=== PATIENT | female | born 2000 | race Caucasian/White ===

== ENCOUNTER 2024-09-20 16:55 | Emergency (ER) | payer BC, MEDICAID, SELFPAY ==
[2024-09-20 17:04] VITALS: BP 159/79; PULSE 91; RESP 16; TEMP 36.6; O2SAT 99; BMI 21.6
--- NOTE | 2024-09-20 17:55 | W.ED.PREGNAN ---
HPI - General: Chief complaint: OB/Uterine Contractions Stated complaint: 4 weeks , bleeding Time Seen by Provider: 09/20/24 17:53 History of Present Illness: 24-year-old female estimates gestational age of approximately 4 weeks. 4 days ago the patient began having some spotting. Bleeding has gotten heavier. She denies any cramping. Associated symptoms: Deny abdominal pain or dysuria Related Data Allergies Allergy/AdvReac Type Severity Reaction Status Date / Time No Known Allergies Allergy Verified 09/20/24 17:11 Review of Systems Const: Denies: fever(s) or chills Card: Denies: chest pain Resp: Denies: dyspnea GI: Denies: abdominal pain : Denies: dysuria, urinary frequency or urinary urgency Musc: Denies: neck pain or back pain Skin/Breast: Denies: rash Physical Exam Const: COMMON NORMALS: no acute distress GENERAL APPEARANCE: cooperative and comfortable ORIENTATION/CONSCIOUSNESS: Yes awake, Yes oriented to person, Yes oriented to place and Yes oriented to time HENMT: COMMON NORMALS: normocephalic, atraumatic and hearing grossly normal bilaterally HEAD & SCALP: normocephalic and atraumatic Resp: COMMON NORMALS: normal respiratory effort, No retractions, No use of accessory muscles and clear to auscultation bilaterally AUSCULTATION: clear to auscultation bilaterally Cardio: COMMON NORMALS: regular rate, regular rhythm and No murmurs present (Cardio) RATE: regular rate RHYTHM: regular rhythm GI: COMMON NORMALS: Soft to palpation and No hepatosplenomegaly present AUSCULTATION: Yes normoactive bowel sounds PALPATION: Yes Soft to palpation, No Tenderness to palpation present (GI), No Guarding due to palpation present (GI) and Yes No hepatosplenomegaly present Extremity: COMMON NORMALS: normal to inspection, capillary refill normal, no clubbing, cyanosis or edema, no calf tenderness and no pedal edema Neuro: SENSORIUM/ORIENTATION: Yes oriented to person, Yes oriented to place and Yes oriented to time Skin: COMMON NORMALS: no rashes or lesions noted GENERAL SKIN EXAM: no rashes or lesions noted Course Vital Signs: Vital signs: Vital Signs Temperature 97.9 F 09/20/24 17:04 Pulse Rate 91 09/20/24 17:04 Respiratory Rate 16 09/20/24 17:04 Blood Pressure 159/79 09/20/24 17:04 Pulse Oximetry 99 09/20/24 17:04 Oxygen Delivery Me thod Room Air 09/20/24 17:04 Discharge Plan Discharge Condition: Stable Referrals: Tenzin Lantigua Jr, MD [Family Provider] - Print Language: Ukrainian Coding Level of Care Code ED Litigation Secretary for Johnsong Shaina
[2024-09-20 18:12] VITALS: BP 106/64; PULSE 61; O2SAT 100
[2024-09-20 18:27] LABS: Basophils # 0.1 10^3/uL (0.0-0.1); Basophils % 0.7 %; Eosinophils # 0.2 10^3/uL (0.0-0.8); Eosinophils % 1.2 %; Hematocrit 48.8 % (36-47); Lymphocytes # 4.9 10^3/uL (0.8-4.8); Lymphocytes % 29.8 %; Mean Corpuscular HGB Conc 32.4 g/dL (30-55); Mean Corpuscular Hemoglobin 30.1 pg (27-33); Mean Platelet Volume 9.9 fL (7.4-10.4); Monocytes # 1.2 10^3/uL (0.2-0.9); Monocytes % 7.3 %; Neutrophils % 60.6 %; Nucleated Red Blood Cells % 0 %; Platelet Count 233 10^3/cmm (157-399); Red Blood Count 5.25 10^6/uL (3.85-5.65); Red Cell Distribution Width 13.5 % (12.1-15.1); White Blood Count 16.33 10^3/uL (3.29-11.43)
[2024-09-20 18:52] LABS: HCG, Serum Qual Negative (Negative)
[2024-09-20 18:59] LABS: Bilirubin Urine Negative (Negative); Blood Urine 3+ (Negative); Glucose Urine UA Negative (Normal); Ketones Urine Negative (Negative); Leukocyte Esterase Urine Trace (Negative); Nitrate Urine Negative (Negative); Protein Urine 1+ (Negative); Specific Gravity, Urine 1.005 (1.005-1.030); Urine Appearance Clear (CLEAR); Urobilinogen Urine 0.2 mg/dL (Negative); pH Urine 8.5 (5-7)
[2024-09-20 19:07] LABS: Add Urine Culture? Yes; Add Urine Microscopic? YES; Bacteria Urine TRACE /hpf; RBC Urine TOO NUMEROUS TO CNT /hpf (0-2); Squamous Epithelial Cell Urine 0-4 /hpf (0-5); Urine Color Red (Yellow); WBC Urine 0-4 /hpf (0-5)
--- NOTE | 2024-09-20 19:18 | ED_ITS ---
HPI - 2 General: Chief complaint: OB/Uterine Contractions Stated complaint: 4 weeks , bleeding Time Seen by Provider: 09/20/24 17:53 History of Present Illness: 24-year-old female complaining of a heav y period, possible miscarriage. She is having some mild pelvic discomfort. She had been spotting on and off for about 3 days. She passed some large clots in the toilet earlier today, and it worried her. No fever. No other discharge. Related Data Allergies Allergy/AdvReac Type Severity Reaction Status Date / Time No Known Allergies Allergy Verified 09/20/24 17:11 Physical Exam 2 Const: COMMON NORMALS: no acute distress GENERAL APPEARANCE: cooperative; not ill appearing and not frail appearing HENMT: COMMON NORMALS: normocephalic, atraumatic and Normal external nose present HEAD & SCALP: normocephalic and atraumatic FACE & SINUS: normal facial exam and face symmetric NOSE: Normal external nose present Eye: COMMON NORMALS: Equal, round and reactive pupils present and EOMs intact bilaterally PUPIL: Yes Equal, round and reactive pupils present Neck/C-Spine: GENERAL: Yes trachea midline Chest: CHEST: Yes Symmetrical chest wall rise Resp: COMMON NORMALS: normal respiratory effort, No retractions, No use of accessory muscles and clear to auscultation bilaterally AUSCULTATION: clear to auscultation bilaterally Cardio: COMMON NORMALS: regular rate and regular rhythm RATE: regular rate RHYTHM: regular rhythm GI: COMMON NORMALS: Normal to inspection, nondistended, normoactive bowel sounds present Extremity: COMMON NORMALS: no pedal edema Neuro: TRE COMA SCALE: document GCS findings Tre coma scale eye opening: Spontaneous Tre coma scale verbal response: Orientated [place] coma scale motor response: Obey commands [place] coma scale total score: 15 S ENSORY EXAM: Yes extremities (intact) Psych: COMMON NORMALS: speech normal SPEECH: Yes normal speech Skin: COMMON NORMALS: no rashes or lesions noted GENERAL SKIN EXAM: no rashes or lesions noted Course 2 Vital Signs: Vital signs: Vital Signs Temperature 97.9 F 09/20/24 17:04 Pulse Rate 61 09/20/24 18:12 Respiratory Rate 16 09/20/24 17:04 Blood Pressure 106/64 09/20/24 18:12 Pulse Oximetry 100 09/20/24 18:12 Oxygen Delivery Me thod Room Air 09/20/24 17:04 MDM - OB/Uterine Contractions Medical Decision Making White blood count is 16, but no left shift. Urinalysis shows hematuria. It is not a cath sample. Hemoglobin is 15.8. Her qualitative hCG is negative. Likely menstrual bleeding. To return for heavy bleeding that continues. Lab Data 09/20/24 18:10 Laboratory Results WBC 16.33 10^3/uL (3.29-11.43) H 09/20/24 18:10 RBC 5.25 10^6/uL (3.85-5.65) 09/20/24 18:10 Hgb 15.80 g/dL (11.27-16.99) 09/20/24 18:10 Hct 48.8 % (36-47) H 09/20/24 18:10 MCV 93.0 fl (85-98) 09/20/24 18:10 MCH 30.1 pg (27-33) 09/20/24 18:10 MCHC 32.4 g/dL (30-55) 09/20/24 18:10 RDW 13.5 % (12.1-15.1) 09/20/24 18:10 Plt Count 233 10^3/cmm (157-399) 09/20/24 18:10 MPV 9.9 fL (7.4-10.4) 09/20/24 18:10 Neut % (Auto) 60.6 % 09/20/24 18:10 Lymph % (Auto) 29.8 % 09/20/24 18:10 [place] % (Auto) 7.3 % 09/20/24 18:10 Eos % (Auto) 1.2 % 09/20/24 18:10 Baso % (Auto) 0.7 % 09/20/24 18:10 Neut # (Auto) 9.90 10^3/uL (1.8-7.7) H 09/20/24 18:10 Lymph # (Auto) 4.9 10^3/uL (0.8-4.8) H 09/20/24 18:10 [place] # (Auto) 1.2 10^3/uL (0.2-0.9) H 09/20/24 18:10 Eos # (Auto) 0.2 10^3/uL (0.0-0.8) 09/20/24 18:10 Baso # (Auto) 0.1 10^3/uL (0.0-0.1) 09/20/24 18:10 Nucleated RBC % (auto) 0 % 09/20/24 18:10 Nucleated RBCs # 0.0 /100WBC 09/20/24 18:10 HCG, Qual Negative (Negative) 09/20/24 18:10 Urine Color Red (Yellow) A 09/20/24 18:46 Urine Appearance Clear (CLEAR) 09/20/24 18:46 Urine pH 8.5 (5-7) A 09/20/24 18:46 Ur Specific [place] 1.005 (1.005-1.030) 09/20/24 18:46 Urine Protein 1+ (Negative) A 09/20/24 18:46 Urine Glucose (UA) Negative (Normal) 09/20/24 18:46 Urine Ketones Negative (Negative) 09/20/24 18:46 Urine Blood 3+ (Negative) A 09/20/24 18:46 Urine Nitrate Negative (Negative) 09/20/24 18:46 Urine Bilirubin Negative (Negative) 09/20/24 18:46 Urine Urobilinogen 0.2 mg/dL (Negative) 09/20/24 18:46 Ur Leukocyte Esterase Trace (Negative) A 09/20/24 18:46 Urine RBC Too numerous to cnt /hpf (0-2) H 09/20/24 18:46 Urine WBC 0-4 /hpf (0-5) H 09/20/24 18:46 Ur Squamous Epith Cells 0-4 /hpf (0-5) H 09/20/24 18:46 Amorphous Sediment Not Reportable 09/20/24 18:46 Urine Bacteria Trace /hpf (NONE) 09/20/24 18:46 Blood Type A Negative 09/20/24 18:10 Rho(D) Type Rh negative 09/20/24 18:10 No radiology studies performed this visit Discharge Plan Discharge Patient Disposition: Home Clinical Impression: Heavy menstrual bleeding Condition: Stable Discharge Orders: Discharge ED (Routine); Ordered 09/20/24 Ordered By: Ziyad Brandt Referrals: Tenzin Lantigua Jr, MD [Family Provider] - Patient Instructions: Menorrhagia (ED), Opioid Safety, Pain Management Activity Restrictions/Additional Instructions: Return for fever, other discharge, heavy bleeding soaking 1 pad per hour or more for more than 3 hours, any other concerns. Print Language: Khmer Coding Level of Care Code ED Inside Phone Sales for Shane Merritt
== END 2024-09-20 19:27 | disposition home or self-care (01) ==
PROVIDERS: Family Medicine; Emergency Provider Emergency Medicine; Family Provider Pediatrics Adolescent Medicine
DX: N93.8 Other specified abnormal uterine and vaginal bleeding (principal)
CPT/HCPCS: 36415; 81001; 84703; 85025; 86900; 87086; 99283